=== PATIENT | female | born 1945 | race Caucasian/White ===

== ENCOUNTER → 2016-09-28 | Day surgery (SDC) | payer OTHER ==
[2016-09-23 09:28] VITALS: Ht 162.6 cm; Wt 64.1 kg
[~2016-09-28] VITALS: Ht 162.6 cm; Wt 64.1 kg
[~2016-09-28] MED LIST: 500ML BSS 0.3ML EPI 1:1000PF IRRIG ONE; ACETAMINOPHEN 325 MG TAB PO PRN; ALL180 PO; AMOX/CLAV PO; AMVISC PLUS 0.8ML SYRINGE INT OCU ONE; ASPI81TA28 PO; ATOR10TA88 PO; ATROPINE SULFATE 0.1 MG/ML 5ML SYR IV PRN; AcetaZOLAMIDE 250 MG TAB PO SCH; BETAXOLOL HCL 0.25% OP SUSP PER DROP CHARGE OPR SCH; BRIMONIDINE TART 0.2% OP SOLN PER DROP CHARGE ONE; BSS FLUSH ONE; CPRDOTS OT; DEXT30TA7 PO; ENDOCOAT 0.85ML SYRINGE INT OCU ONE; EpHEDrine SULFATE INJ 50 MG/ML AMP IV PRN; EpINEphrine INJ 1MG/ML AMP 1 MG/ML AMP ONE; FENTANYL CITRATE INJ 50 MCG/1 ML 2 ML VIAL IV PRN; FLUMAZENIL 0.1 MG/1 ML 10 ML VIAL IV PRN; GLC/500 PO; HYD50 PO; HYDROmorphone INJ 2 MG/ML SYR/VIAL IV PRN; LABETALOL HCL IV 5 MG/ML 20ML IV PRN; LACTATED RINGER'S 1000ML 500 ML IV SCH; LIDOCAINE 4% OP SOLN DROP CHARGE ONE; LIDOCAINE 4% OP SOLN DROP CHARGE OPR SCH; LIDOCAINE HCL 1% MPF 2 ML VIAL ONE; MAGN400T6 PO; MEPERIDINE HCL 25 MG/ML CARP IV PRN; MIDAZOLAM HCL 1 MG/ML 2ML VIAL ONE; MIX: 4ML BSS 1ML EPI 1:1000 PF INSTIL ONE; MOME50SP5; MOXIFLOXACIN OPH SOLN PER DROP CHARGE ONE; MULT-845 PO; NALOXONE HCL 0.4 MG/1 ML VIAL/CARP IV PRN; OCUCOAT 1 ML SOLN IO ONE; OMEG10007 PO; ONDANSETRON INJ 2 MG/ML 2 ML VIAL IV PRN; PHENYLEPHRINE 100MCG/ML 5ML SYR IV PRN; POTA1080 PO; POVIDONE-IODINE OP SOLN 30 ML BTL ONE; PRDFOPS/10 OPR; PROPARACAINE 0.5% OP SOLN PER DROP CHARGE OPR SCH; TOBRAMYCIN/DEXAMETHASONE OPH OINT PER APPLN CHARGE ONE; VITAMIN D PO
--- NOTE | 2016-09-28 08:19 | History & Physical Bridge - SC ---
H&P Re-Evaluation Bridge Note: I have examined the patient, reviewed the History & Physical and in the interval since the performance of the History & Physical I have noted the following changes of clinical significance: No changes noted
[2016-09-28] MEDS: PHENYLEPHRINE HCL 2.5% OP SOLN PER DROP CHARGE OPR SCH ×2 (08:30→08:35)
[2016-09-28] MEDS: TROPICAMIDE 1% OP SOLN PER DROP CHARGE OPR SCH ×2 (08:31→08:36)
[2016-09-28] MEDS: CYCLOPENTOLATE HCL 1% OP SOLN PER DROP CHARGE OPR SCH ×2 (08:32→08:37)
[2016-09-28] MEDS: MOXIFLOXACIN OPH SOLN PER DROP CHARGE OPR SCH ×2 (08:33→08:43)
--- NOTE | 2016-09-28 09:44 | Discharge Instructions-SurgCtr ---
Discharge Instructions Visit Reason for Visit: Cataract Right Eye Discharge Discharge Diagnosis / Problem: Lens Imaplnt Right Eye Discharge Goals Goal(s): Improve function Medications Stopped Medications Name(s): Metformin, last dose 09/25/16 Activity Recommendations Activity Limitations: resume your previous activity Lifting Limitations: no more than 10 pounds Exercise/Sports Limitations: gradually increase as tolerated May Resume Sexual Activity: when tolerated Shower/Bathe: tomorrow Driving or Machine Use: resume 1 day after discharge Anesthesia . Post Anesthesia Instructions: If you have had General Anesthesia or IV Sedation: * Do not drive today. * Resume driving when surgeon permits. * Do not make important decisions or sign legal documents today. * Call surgeon for: 1. Temperature elevations greater than 101 degrees F. 2. Uncontrollable pain. 3. Excessive bleeding. 4. Persistent nausea and vomiting. 5. Medication intolerance (nausea, vomiting or rash). * For nausea and vomiting use only clear liquids such as: tea, soda, bouillon until nausea subsides, then gradually increase diet as tolerated. * If you have any concerns or questions, call your surgeon's office. If physician is unavailable and it is an emergency, call 911 or go to the nearest emergency room. . Instructions / Follow-Up Instructions / Follow-Up ACTIVITY RECOMMENDATIONS: * Light activities. * Mild irritation and blurred vision are common for the first few days. * You may walk outside, read, watch television. * Redness around the white part of the eye is common. MEDICATIONS: Resume previous medications unless instructed otherwise by your surgeon. * Take white Diamox (Acetazolamide) tablet at 1 pm today. Start all eye drops at 1 pm today: * Eye drops (today and tomorrow): Prednisone - one drop in operative eye every 3 hours while awake Ofloxacin - one drop in operative eye every 3 hours while awake SPECIAL CARE INSTRUCTIONS: * Tape plastic shield over eye to sleep at night. Call your doctor at with any concerns or problems. FOLLOW UP VISIT: Follow-up with Dr Espinal at [place] office as scheduled. Diet Recommendations Home Diet: no limitations Pending Studies Studies pending at discharge: no Medical Emergencies . Who to Call and When: Medical Emergencies: If at any time you feel your situation is an emergency, please call 911 immediately. . Non-Emergent Contact Non-Emergency issues call your: Psychology Instructor Call Non-Emergent contact if: your pain is not controlled [phone] . . "Provider Documentation" section prepared by Ren Espinal.
--- NOTE | 2016-09-28 09:45 | [facility] Operative Report ---
Operative Report 1. PREOPERATIVE DIAGNOSIS: Senile nuclear cataract, right eye. 2. POSTOPERATIVE DIAGNOSIS: Senile nuclear cataract, right eye. 3. PROCEDURE: Phacoemulsification of right cataract with posterior chamber lens implant, type [employer]ch [employer], model MX60, power +22.0 diopters. ANESTHESIA: Local standby. SURGEON: Dr. Espinal. COMPLICATIONS: None. OPERATING TIME: 10 minutes. 4. OPERATION AND FINDINGS: DESCRIPTION OF PROCEDURE: The right pupil was dilated. The anesthetic was administered using a topical technique. The right eye was prepped and draped. A speculum was placed. A clear corneal incision was formed. The chamber was filled with Amvisc Plus and Endocoat. Epinephrine solution was used. A paracentesis was placed. A capsulorrhexis was performed. The nucleus was hydrodissected. The lens was removed with phacoemulsification. Time was 2.93 seconds. The aspiration unit was used to remove the cortex. The capsule was filled with Amvisc Plus. The lens implant was folded and placed into the capsule. The incision was hydrated. The Amvisc was aspirated. The wound was secure. The chamber was deep. The pupil was round. TobraDex ointment and Vigamox solution were placed. The speculum was removed. The patient was returned to the Recovery Room in stable condition. I attest to the content of the Intraoperative Record and any orders documented therein. Any exceptions are noted below. The scribe's documentation has been prepared in my presence, under my direction and personally reviewed by me in its entirety. I confirm that the note above accurately reflects all work, treatment, procedures, and medical decision making performed by me. I personally scribed for Ren Espinal M.D. ([email or web address]) on 09/28/16 at 09:45. Electronically submitted by Cyndie Smart ([email or web address]).
[2016-09-28 09:50] VITALS: TEMP 36.6
--- NOTE | 2016-09-28 10:00 | Anesthesia Progress Nt - [facility] ---
Anesthesia Post Op Note Date & Time Sep 28, 2016 at 10:00 Vital Signs Pain Intensity: 0 Vital Signs Past 12 Hours Date Time Temp Pulse Resp B/P Pulse Ox O2 Delivery O2 Flow Rate FiO2 09/28/16 08:25 36.7 80 16 144/80 96 Room Air Notes Mental Status: alert / awake / arousable, participated in evaluation Pt Amnestic to Procedure: Yes Nausea / Vomiting: adequately controlled Pain: adequately controlled Airway Patency, RR, SpO2: stable & adequate BP & HR: stable & adequate Hydration State: stable & adequate Anesthetic Complications: no major complications apparent
[2016-09-28 10:16] VITALS: BP 126/76; PULSE 61; O2SAT 98
== END | disposition home or self-care (01) ==
LOC: X.SURG 08:06
PROVIDERS: ATTEND Specialist
DX: H25.11 Age-related nuclear cataract, right eye (principal); Z91.040 Latex allergy status; Z98.49 Cataract extraction status, unspecified eye; E11.36 Type 2 diabetes mellitus with diabetic cataract; Z85.828 Personal history of other malignant neoplasm of skin

== ENCOUNTER → 2016-10-06 | Outpatient (CLI) | payer OTHER ==
[~2016-10-06] MED LIST changes: -500ML BSS 0.3ML EPI 1:1000PF IRRIG ONE; -ACETAMINOPHEN 325 MG TAB PO PRN; -AMVISC PLUS 0.8ML SYRINGE INT OCU ONE; -ATROPINE SULFATE 0.1 MG/ML 5ML SYR IV PRN; -AcetaZOLAMIDE 250 MG TAB PO SCH; -BETAXOLOL HCL 0.25% OP SUSP PER DROP CHARGE OPR SCH; -BRIMONIDINE TART 0.2% OP SOLN PER DROP CHARGE ONE; -BSS FLUSH ONE; -ENDOCOAT 0.85ML SYRINGE INT OCU ONE; -EpHEDrine SULFATE INJ 50 MG/ML AMP IV PRN; -EpINEphrine INJ 1MG/ML AMP 1 MG/ML AMP ONE; -FENTANYL CITRATE INJ 50 MCG/1 ML 2 ML VIAL IV PRN; -FLUMAZENIL 0.1 MG/1 ML 10 ML VIAL IV PRN; -HYDROmorphone INJ 2 MG/ML SYR/VIAL IV PRN; -LABETALOL HCL IV 5 MG/ML 20ML IV PRN; -LACTATED RINGER'S 1000ML 500 ML IV SCH; -LIDOCAINE 4% OP SOLN DROP CHARGE ONE; -LIDOCAINE 4% OP SOLN DROP CHARGE OPR SCH; -LIDOCAINE HCL 1% MPF 2 ML VIAL ONE; -MEPERIDINE HCL 25 MG/ML CARP IV PRN; -MIDAZOLAM HCL 1 MG/ML 2ML VIAL ONE; -MIX: 4ML BSS 1ML EPI 1:1000 PF INSTIL ONE; -MOXIFLOXACIN OPH SOLN PER DROP CHARGE ONE; -NALOXONE HCL 0.4 MG/1 ML VIAL/CARP IV PRN; -OCUCOAT 1 ML SOLN IO ONE; -ONDANSETRON INJ 2 MG/ML 2 ML VIAL IV PRN; -PHENYLEPHRINE 100MCG/ML 5ML SYR IV PRN; -POVIDONE-IODINE OP SOLN 30 ML BTL ONE; -PROPARACAINE 0.5% OP SOLN PER DROP CHARGE OPR SCH; -TOBRAMYCIN/DEXAMETHASONE OPH OINT PER APPLN CHARGE ONE
== END | disposition home or self-care (01) ==
LOC: C.PATHSPEC 15:34
PROVIDERS: ATTEND Podiatrist
DX: B07.0 Plantar wart (principal)

== ENCOUNTER → 2017-02-28 | Outpatient (CLI) | payer OTHER ==
[~2017-02-28] MED LIST changes: +ATOR10TA82 PO; -ATOR10TA88 PO; +BUSP5TAB59 PO; +CHOL400T PO; -CPRDOTS OT; +CPRDOTS OTR; +FEXO1TAB49 PO; +HYDR50TA3 PO; +MOME6000 NAE; +POTA10CA28 PO; +SERT25TA PO
[2017-02-28 12:22] LABS: HEMATOCRIT 42.8 % (37-47); MEAN CELL VOLUME 99.8 fL (80-100); MEAN CORPUSCULAR HEMOGLOBIN 33.1 pg (25-34); MEAN CORPUSCULAR HGB CONC 33.2 g/dl (32-36); MEAN PLATELET VOLUME 10.1 fL (7.4-10.4); PLATELET COUNT 279 K/uL (130-400); RED BLOOD COUNT 4.29 M/uL (4.2-5.4); WHITE BLOOD COUNT 8.47 K/uL (4.8-10.8)
[2017-02-28 12:32] LABS: ALT/SGPT 29 U/L (12-78); BLOOD UREA NITROGEN 15 mg/dl (7-18); BUN/CREATININE RATIO 19.9 (10-20); CARBON DIOXIDE 29 mmol/L (21-32); CHLORIDE 104 mmol/L (98-107); CHOLESTEROL 150 mg/dl (0-200); CREATININE 0.76 mg/dl (0.60-1.20); GLUCOSE 139 mg/dl (70-99); POTASSIUM 4.4 mmol/L (3.5-5.1); SODIUM 144 mmol/L (136-145)
[2017-02-28 12:42] LABS: ALB/GLOB RATIO 1.2 (0.9-2); ALKALINE PHOSPHATASE 105 U/L (45-117); AST/SGOT 18 U/L (15-37); CHOLESTEROL/HDL RATIO 1.8; HDL CHOLESTEROL 85 mg/dl; LDL CHOLESTEROL CALCULATED 52 mg/dl; TRIGLYCERIDES 63 mg/dl (0-150); VERY LOW DENSITY LIPOPROT CALC 13 mg/dl
[2017-02-28 12:47] LABS: CALCIUM 9.6 mg/dl (8.5-10.1)
[2017-02-28 13:08] LABS: RATIO 22.6 mcg/mg (0-30.0)
[2017-02-28 13:08] LABS: ESTIMATED AVERAGE GLUCOSE 140 mg/dl; HA1C FLAG Normal (Normal)
== END | disposition home or self-care (01) ==
LOC: C.LABBFT 07:50
PROVIDERS: ATTEND Internal Medicine
DX: E11.9 Type 2 diabetes mellitus without complications (principal)

== ENCOUNTER → 2017-04-17 | Outpatient (CLI) | payer OTHER ==
[~2017-04-17] MED LIST changes: -ATOR10TA82 PO; +ATOR10TA88 PO; -BUSP5TAB59 PO; -CHOL400T PO; +CPRDOTS OT; -CPRDOTS OTR; -FEXO1TAB49 PO; -HYDR50TA3 PO; -MOME6000 NAE; -POTA10CA28 PO; -SERT25TA PO
--- NOTE | 2017-04-17 15:42 | MAMMOGRAPHY REPORT ---
BILATERAL DIGITAL SCREENING MAMMOGRAM WITH CAD: 04/17/2017 CLINICAL HISTORY: Routine screening examination. TECHNIQUE: Bilateral CC and MLO views were obtained. Current study was also evaluated with a Compute r Aided Detection (CAD) system. COMPARISON: Comparison is made to exams dated: 04/14/2016 mammogram, 03/02/2015 mammogram, 01/31/2014 m ammogram, 01/17/2013 mammogram, 01/11/2012 mammogram, and 01/05/2011 mammogram - [facility]ter. BREAST COMPOSITION: The tissue of both breasts is heterogeneously dense, which may obscure small mas ses. FINDINGS: The parenchymal pattern is similar to prior mammograms. There are stable asymmetries and lymph nodes in the superior aspect of each breast on the MLO views. Numerous bilateral benign rim ca lcifications and mild vascular calcifications in the breasts. No developing mass, architectural dist ortion or cluster of suspicious microcalcifications is seen in either breast. IMPRESSION: ACR BI-RADS CATEGORY 2: BENIGN There is no mammographic evidence of malignancy. A 1 year screening mammogram is recommended. The pa tient will receive written notification of the results. Approximately 10% of breast cancers are not detected with mammography. A negative mammographic report should not delay biopsy if a clinically suggestive mass is present. Cheryl Kitchen M.D. ay/:04/17/2017 14:47:02 Mobile Pet Groomer: Laura PEREZ)(Christina), [facility] letter sent: Normal 1/2 BI-RADS Code: ACR BI-RADS Category 2: Benign
== END | disposition home or self-care (01) ==
LOC: C.MAMM 14:06
PROVIDERS: ATTEND Internal Medicine
DX: Z12.31 Encounter for screening mammogram for malignant neoplasm of breast (principal)

== ENCOUNTER 2017-08-21 13:12 | Emergency (ER) | payer OTHER ==
[~2017-08-21] VITALS: Ht 162.6 cm; Wt 63.2 kg
[~2017-08-21 13:12] MED LIST changes: -ALL180 PO; -AMOX/CLAV PO; +ATOR10TA82 PO; -ATOR10TA88 PO; +BUSP5TAB59 PO; -CPRDOTS OT; +CPRDOTS OTR; +FEXO1TAB49 PO; -HYD50 PO; +HYDR50TA3 PO; -MOME50SP5; +MOME6000 NAE; -POTA1080 PO; +POTA10CA28 PO; -PRDFOPS/10 OPR; +SERT25TA PO
[2017-08-21 13:14] VITALS: TEMP 36.7; Ht 162.6 cm; Wt 63.2 kg
--- NOTE | 2017-08-21 13:49 | EMERGENCY ROOM VISIT NOTE ---
History First contact with patient: 13:27 Chief Complaint: CARDIAC ASSESSMENT Stated Complaint: CHEST PRESSURE Nursing Triage Summary: Pt reports midsternal chest discomfort that began this morning approx 1000. Denies sob, dizziness or lightheadedness. Pain is non radiating. Pt seen here last week for similar sx. Pt reports hx of anxiety, recently started on Zoloft. History of Present Illness The patient is a 71 year old female who presents to the Emergency Room with complaints of substernal chest pain Pt has a PMH of HTN, HLD, T2DM and generalized anxiety disorder and recent hospitalization for chest pain on Aug 18. Patient describes the pain as substernal burning pressure. Pt denies radiation of pain, diaphoresis, SOB, syncope or leg swelling. She endorses the pain at rest and with activity and says that the pain has resolved since arriving to the ED; says that it began at approximately 10:30 am, ending at 12:30pm. The pain began shortly after discussing her recent hospitalization with her [id number] on the phone. She reports feeling stressed by this conversation. During her Aug 18 hospitalization, ACS was ruled out; patient had normal EKG's , cardiac enzymes and exercise echo. Review of Systems see below Constitutional: No fever, No chills, No sweats Respiratory: No cough, No sputum, No shortness of breath, No dyspnea on exertion, No dyspnea at rest Cardiovascular: No chest pain, No orthopnea, No edema, No palpitations Abdomen: No pain, No nausea, No vomiting Past Medical/Surgical History Medical Problems: (1) Anxiety (2) Chest pain (3) Kidney stone Family History Coronary Artery Disease FATHER, GRANDFATHER Kidney disease FATHER, Myocardial Infarction FATHER, Systolic Congestive Heart Failure FATHER, Social History Smoking Status: Never Smoker Drug Use: none Marital Status: Housing Status: lives with significant other Occupation Status: retired Current/Historical Medications Scheduled Aspirin (Aspirin Ec), 81 MG PO QAM Atorvastatin (Lipitor), 10 MG PO HS Cholecalciferol (Vitamin D), 1 TAB PO DAILY Ciprofloxacin/Dexamethasone (Ciprodex 0.3-0.1 %), 4-5 DROPS OTR PRN Dextromethorphan-Guaifenesin (Mucinex Dm), 1 TAB PO BID Fexofenadine Hcl (Sugar Allergy), 180 MG PO HS Fish Oil (Elbert-3), 1 CAP PO QAM Hydrochlorothiazide (Hctz), 50 MG PO BID Magnesium Oxide (Mag-Ox), 400 MG PO BID Metformin Hcl (Glucophage), 500 MG PO BID Multiple Vitamins W/ Minerals (Centrum Silver Adult 50+), 1 TAB PO QAM Potassium Chloride (Micro-K Ext Rel), 10 MEQ PO TID Sertraline (Zoloft), 1 TAB PO DAILY [Vitamin D], 600 INTER.UNIT PO QAM Scheduled PRN Mometasone Furoate (Nasal) (Mometasone Furoate), 2 SPRAYS GREGG DAILY PRN for Nasal Congestion Physical Exam Vital Signs Date Time Temp Pulse Resp B/P (MAP) Pulse Ox O2 Delivery O2 Flow Rate FiO2 08/21/17 15:22 88 18 126/60 97 Room Air 08/21/17 13:14 36.7 106 18 169/73 96 Room Air Physical Exam see below General Appearance: WD/WN, no apparent distress Head: normocephalic, atraumatic Respiratory/Chest: chest non-tender, lungs clear, normal breath sounds, no respiratory distress, no accessory muscle use Cardiovascular: regular rate, rhythm, no edema, no gallop, no JVD, no murmur , normal peripheral pulses Abdomen / GI: normal bowel sounds, non tender, soft, no organomegaly, no pulsatile mass Neurologic/Psych: alert, normal mood/affect, normal reflexes, oriented x 3 Medical Decision & Procedures Laboratory Results Test 08/21/17 13:45 08/21/17 14:00 Troponin I < 0.015 ng/ml (0-0.045) Bedside Troponin I < 0.030 ng/ml (0-0.045) ECG Indication: chest pain Rate (beats per minute): 95 Rhythm: normal sinus Change: no significant change ED Course 1330 History and physical performed. 1345 EKG and troponin ordered 1500 reviewed studies with the patient 1530 discharged the patient Medical Decision 71 yo female with chest pain; Considering the following differential; ACS, anxiety, GERD, esophageal spasm, costochondritis Ordering EKG, POC trop. Unremarkable EKG, no changes seen since previous visit, Trop <.030. The patient does have significant risk factors for CAD; HTN, T2DM and HLD. She also had a Heart Score of 4 putting her at moderate risk of adverse cardiac events. Despite this, the patient had a unremarkable EKG with new changes and a negative POC troponin. In addition, the patient was recently admitted last week for similar chest pain and received an extensive workup for ACS. On that admission, the patient was seen to have a unremarkable EKG's, labs and exercise echo. Patient chest pain appears not to be cardiac in origin. Patient has been instructed to follow up closely with their PCP. Discussed with the patient the potential causes; anxiety, reflux. Impression Primary Impression: Chest pain Additional Impression: Anxiety Departure Information Dispostion Home / Self-Care Referrals Danny Stewart M.D. (PCP) Patient Instructions My [facility] Problem Qualifiers
[2017-08-21] MEDS ORDERED: CHOL400T PO (15:05)
[2017-08-21 15:22] VITALS: BP 126/60; PULSE 88; O2SAT 97
--- NOTE | 2017-08-21 15:29 | EMERGENCY ROOM VISIT NOTE ---
History Report prepared by Meir: Chadwick Ochoa Under the Supervision of: Dr. Venkat Sears D.O. First contact with patient: 13:27 Chief Complaint: CARDIAC ASSESSMENT Stated Complaint: CHEST PRESSURE Nursing Triage Summary: Pt reports midsternal chest discomfort that began this morning approx 1000. Denies sob, dizziness or lightheadedness. Pain is non radiating. Pt seen here last week for similar sx. Pt reports hx of anxiety, recently started on Zoloft. History of Present Illness The patient is a 71 year old female who presents to the Emergency Room with complaints of resolved chest tightness that occurred earlier today. The patient that nothing triggered the chest pain, and she feels like it is a burning sensation. The patient denies any nausea, vomiting, and diaphoresis. The patient has a past medical history of generalized anxiety disorder, and she was recently hospitalized August 17 to August 18 for chest pain. She had a stress echo done, and it was normal. The patient does not have a history of GERD , and she takes Zoloft for her anxiety. Source of History: patient Onset: earlier today Position: chest Quality: burning, other (tightness) Timing: resolved Associated Symptoms: No diaphoresis, No nausea, No vomiting Review of Systems See HPI for pertinent positives & negatives. A total of 10 systems reviewed and were otherwise negative. Past Medical & Surgical Medical Problems: (1) Anxiety (2) Chest pain (3) Kidney stone Family History Coronary Artery Disease FATHER, GRANDFATHER Kidney disease FATHER, Myocardial Infarction FATHER, Systolic Congestive Heart Failure FATHER, Social History Smoking Status: Never Smoker Drug Use: none Marital Status: Housing Status: lives with significant other Occupation Status: retired Current/Historical Medications Scheduled Aspirin (Aspirin Ec), 81 MG PO QAM Atorvastatin (Lipitor), 10 MG PO HS Cholecalciferol (Vitamin D), 1 TAB PO DAILY Ciprofloxacin/Dexamethasone (Ciprodex 0.3-0.1 %), 4-5 DROPS OTR PRN Dextromethorphan-Guaifenesin (Mucinex Dm), 1 TAB PO BID Fexofenadine Hcl (Sugar Allergy), 180 MG PO HS Fish Oil (Eugene-3), 1 CAP PO QAM Hydrochlorothiazide (Hctz), 50 MG PO BID Magnesium Oxide (Mag-Ox), 400 MG PO BID Metformin Hcl (Glucophage), 500 MG PO BID Multiple Vitamins W/ Minerals (Centrum Silver Adult 50+), 1 TAB PO QAM Potassium Chloride (Micro-K Ext Rel), 10 MEQ PO TID Sertraline (Zoloft), 1 TAB PO DAILY [Vitamin D], 600 INTER.UNIT PO QAM Scheduled PRN Mometasone Furoate (Nasal) (Mometasone Furoate), 2 SPRAYS GREGG DAILY PRN for Nasal Congestion Allergies Coded Allergies: Cephalexin (Verified Allergy, Severe, RASH, 08/21/17) Iodine (Verified Allergy, Mild, ITCHING (CONTRAST MEDIA), 08/21/17) Adhesives (Verified Allergy, Unknown, REDNESS, 08/21/17) Iodinated Diagnostic Agents (Verified Allergy, Unknown, ., 08/21/17) Latex1 -Allergic Contact Dermititis (Verified Allergy, Unknown, HIVES, 08/21/17) Physical Exam Vital Signs Date Time Temp Pulse Resp B/P (MAP) Pulse Ox O2 Delivery O2 Flow Rate FiO2 08/21/17 15:22 88 18 126/60 97 Room Air 08/21/17 13:14 36.7 106 18 169/73 96 Room Air Physical Exam CONSTITUTIONAL/VITAL SIGNS: Reviewed / noted above. GENERAL: Non-toxic in appearance. INTEGUMENTARY: Warm, dry, and [place]. HEAD: Normocephalic. EYES: without scleral icterus or trauma. ENT/OROPHARYNX: clear and moist. LYMPHADENOPATHY/NECK: Is supple without lymphadenopathy or meningismus. RESPIRATORY: Lungs clear and equal. CARDIOVASCULAR: Regular rate and rhythm. GI/ABDOMEN: Soft and nontender. No organomegaly or pulsatile mass. No rebound or guarding. Normal bowel sounds. EXTREMITIES: Warm and well perfused. BACK: No CVA tenderness. NEUROLOGICAL: Intact without focal deficits. PSYCHIATRIC: normal affect. MUSCULOSKELETAL: Normally developed with good muscle tone. Medical Decision & Procedures Laboratory Results Test 08/21/17 13:45 08/21/17 14:00 Troponin I < 0.015 ng/ml (0-0.045) Bedside Troponin I < 0.030 ng/ml (0-0.045) Laboratory results as stated above per my review. ECG Indication: chest pain Rate (beats per minute): 95 Rhythm: normal sinus Findings: no ectopy, other (No acute injury) ED Course 1327: The patient was evaluated by the resident at this time. 1521: Previous medical records were reviewed. The patient was evaluated in room A4. A complete history and physical examination was performed. The patient is ready for discharge. Medical Decision the differential was considered includes acute myocardial infarction, acute coronary syndrome, myocarditis, pericarditis, pericardial effusions /tamponade, esophageal perforation, thoracic aortic dissection, pulmonary embolism, pneumonia, pneumothorax, pancreatitis, shingles, acute cholecystitis, perforated abdominal viscus. This patient was seen in conjunction with the resident. She is a 71-year-old female who presented with chest discomfort. The patient was discharged 3 days ago for the same symptoms. She had a cardiac evaluation at that time that was unremarkable. She does have a history of anxiety as well. The patient was placed on Zoloft. She reports that her symptoms are vertical in nature. She describes a burning sensation in her chest. Her EKG shows a normal sinus rhythm at a rate of 95 without ischemic changes. Her troponin here was normal. Her physical exam was unremarkable. Her vital signs are stable. The patient was told results the test. We did recommend acid blocking agents. The patient was felt to be stable for discharge and outpatient follow-up with her PCP. Medication Reconcilliation Current Medication List: was personally reviewed by me Blood Pressure Screening Patient's blood pressure: Elevated blood pressure Blood pressure disposition: Elevated BP felt to be situational Impression Primary Impression: Precordial chest pain Scribe Attestation The scribe's documentation has been prepared under my direction and personally reviewed by me in its entirety. I confirm that the note above accurately reflects all work, treatment, procedures, and medical decision making performed by me. Departure Information Dispostion Home / Self-Care Referrals Danny Stewart M.D. (PCP) Forms IMPORTANT VISIT INFORMATION Patient Instructions My [facility] Additional Instructions Ms. Salas, You came to the emergency room with chest pain. We did some test including an EKG and troponin to rule out cardiac causes of your pain. Both test can tell us if there is any acute damage to the heart. Both of these test came back normal. We also reviewed your recent hospitalization. Today's finding in combination with your recent normal cardiac workup is reassuring. Additionally, there are other non-serious causes of chest pain to consider; gastric reflux andmuscle strain to name a few. Please follow up with your primary care physicain regarding these symptoms. It was a pleasure to take care of you today.
== END 2017-08-21 15:24 | disposition home or self-care (01) ==
LOC: C.EDB 13:13 → C.EDA 15:24
DX: R07.2 Precordial pain (principal); F41.1 Generalized anxiety disorder; I10 Essential (primary) hypertension; E78.5 Hyperlipidemia, unspecified; E11.9 Type 2 diabetes mellitus without complications; Z79.82 Long term (current) use of aspirin; Z79.84 Long term (current) use of oral hypoglycemic drugs; Z79.899 Other long term (current) drug therapy; Z82.49 Family history of ischemic heart disease and other diseases of the circulatory system; Z84.1 Family history of disorders of kidney and ureter

== ENCOUNTER → 2017-08-23 | Outpatient (CLI) | payer OTHER ==
[~2017-08-23] MED LIST changes: -BUSP5TAB59 PO; +CHOL400T PO
[2017-08-23 12:36] LABS: HEMATOCRIT 42.9 % (37-47); MEAN CELL VOLUME 99.3 fL (80-100); MEAN CORPUSCULAR HEMOGLOBIN 32.9 pg (25-34); MEAN CORPUSCULAR HGB CONC 33.1 g/dl (32-36); MEAN PLATELET VOLUME 10.3 fL (7.4-10.4); PLATELET COUNT 287 K/uL (130-400); RED BLOOD COUNT 4.32 M/uL (4.2-5.4); WHITE BLOOD COUNT 9.55 K/uL (4.8-10.8)
[2017-08-23 12:51] LABS: ALT/SGPT 29 U/L (12-78); AST/SGOT 16 U/L (15-37); BLOOD UREA NITROGEN 16 mg/dl (7-18); BUN/CREATININE RATIO 20.2 (10-20); CALCIUM 9.8 mg/dl (8.5-10.1); CARBON DIOXIDE 31 mmol/L (21-32); CHLORIDE 101 mmol/L (98-107); GLUCOSE 137 mg/dl (70-99); POTASSIUM 3.8 mmol/L (3.5-5.1); SODIUM 138 mmol/L (136-145)
[2017-08-23 12:54] LABS: ALB/GLOB RATIO 1.1 (0.9-2); ALKALINE PHOSPHATASE 110 U/L (45-117); CHOLESTEROL 157 mg/dl (0-200); CHOLESTEROL/HDL RATIO 1.7; HDL CHOLESTEROL 90 mg/dl; LDL CHOLESTEROL CALCULATED 49 mg/dl; TRIGLYCERIDES 90 mg/dl (0-150); VERY LOW DENSITY LIPOPROT CALC 18 mg/dl
[2017-08-23 13:16] LABS: ESTIMATED AVERAGE GLUCOSE 140 mg/dl; HA1C FLAG Normal (Normal)
== END | disposition home or self-care (01) ==
LOC: C.LABBFT 07:44
PROVIDERS: ATTEND Internal Medicine
DX: E78.5 Hyperlipidemia, unspecified (principal); E11.9 Type 2 diabetes mellitus without complications

== ENCOUNTER → 2017-09-21 | Outpatient (CLI) | payer OTHER | END | disposition home or self-care (01) | LOC: C.PATHSPEC 16:58 | PROVIDERS: ATTEND Physician Assistant | DX: C44.722 Squamous cell carcinoma of skin of right lower limb, including hip (principal); D04.72 Carcinoma in situ of skin of left lower limb, including hip ==

== ENCOUNTER → 2017-09-27 | Outpatient (CLI) | payer OTHER ==
--- NOTE | 2017-09-27 14:40 | DIAGNOSTIC IMAGING REPORT ---
KUB CLINICAL HISTORY: N20.0 Kidney [id number] nephrocalcinosis COMPARISON STUDY: 10/28/2015 FINDINGS: Multiple bilateral renal calcifications. Is essentially unchanged in size as well as number. There are no significant paravertebral calcifications. There are multiple pelvic vascular calcifications which are unchanged. Bowel pattern is nonobstructive. IMPRESSION: Bilateral nephrocalcinosis. No change from the prior study. Nonobstructive bowel pattern. The above report was generated using voice recognition software. It may contain grammatical, syntax or spelling errors. Electronically signed by: Carmine Adams M.D. 09/27/2017 2:39 PM Dictated Date/Time: 09/27/2017 2:38 PM
== END | disposition home or self-care (01) ==
LOC: C.RAD 14:22
PROVIDERS: ATTEND Urology
DX: N20.0 Calculus of kidney (principal)

== ENCOUNTER → 2017-11-09 | Outpatient (CLI) | payer OTHER | END | disposition home or self-care (01) | LOC: C.PATHSPEC 18:24 | PROVIDERS: ATTEND Plastic Surgery | DX: D04.71 Carcinoma in situ of skin of right lower limb, including hip (principal); D04.72 Carcinoma in situ of skin of left lower limb, including hip ==

== ENCOUNTER → 2018-04-27 | Outpatient (CLI) | payer OTHER ==
--- NOTE | 2018-04-27 15:27 | MAMMOGRAPHY REPORT ---
BILATERAL DIGITAL SCREENING MAMMOGRAM TOMOSYNTHESIS WITH CAD: 04/27/2018 CLINICAL HISTORY: Routine screening. Patient has no complaints. TECHNIQUE: The study was acquired using full field digital technology and interpreted from soft copy. Breast tomosynthesis in addition to standard 2D mammography was performed. Current study was also ev aluated with a Computer Aided Detection (CAD) system. COMPARISON: Comparison is made to exams dated: 04/17/2017 mammogram, 04/14/2016 mammogram, 03/02/2015 m ammogram, 01/31/2014 mammogram, 01/17/2013 mammogram, and 01/11/2012 mammogram - [facility] nter. BREAST COMPOSITION: The tissue of both breasts is heterogeneously dense, which may obscure small mass es. FINDINGS: No suspicious masses, calcifications, or areas of architectural distortion are noted in either breast . There has been no significant interval change compared to prior exams. Bilateral asymmetries and s cattered bilateral benign-appearing calcifications are not significantly changed. IMPRESSION: ACR BI-RADS CATEGORY 2: BENIGN There is no mammographic evidence of malignancy. A 1 year screening mammogram is recommended.( 019) The patient will receive written notification of the results. Some breast cancers are not detected with mammography. A negative mammographic report should not fang y biopsy if a clinically suggestive mass is present. Kelsi Elam M.D. ah/:04/27/2018 14:51:00 Plastics Plater: Sarika Viveros RT(R)(M), [facility] letter sent: Normal 1/2 BI-RADS Code: ACR BI-RADS Category 2: Benign
== END | disposition home or self-care (01) ==
LOC: C.MAMM 14:11
PROVIDERS: ATTEND Internal Medicine
DX: Z12.31 Encounter for screening mammogram for malignant neoplasm of breast (principal)

== ENCOUNTER 2021-05-03 12:38 | Observation (INO) ==
--- NOTE | 2021-05-03 13:26 | XRay Report ---
SINGLE VIEW CHEST CLINICAL HISTORY: Atypical chest pain. FINDINGS: An AP, portable, upright chest radiograph is compared to study dated 08/14/2019. The cardio mediastinal silhouette is unremarkable. There is bibasilar atelectasis. The lungs and pleural spaces are otherwise clear. No pneumothorax is seen. The skeletal structures are osteopenic. The bony thorax is grossly intact. IMPRESSION: No active disease in the chest. ACT 112: Negative or not required by law. Electronically signed by: Familia Leigh M.D. 05/03/2021 1:25 PM
[2021-05-03] MEDS ORDERED: ASPIRIN CHEW 324 MG PO STA (13:37)
[2021-05-03 13:38] LABS: Alanine Aminotransferase 25 U/L (12-78); Albumin Level 3.8 gm/dl (3.4-5.0); Aspartate Aminotransferase 20 U/L (15-37); BUN Creatinine Ratio 21.9 (10-20); Blood Urea Nitrogen 14 mg/dl (7-18); Calcium 9.5 mg/dl (8.5-10.1); Carbon Dioxide 26 mmol/L (21-32); Chloride 108 mmol/L (98-107); Creatinine Clr Calc Pharmacy 71.1 ml/min; Est GFR (African American) 100.5 ml/min; Est GFR (Non-African American) 86.7 ml/min; Glucose 106 mg/dl (70-99); Potassium 4.1 mmol/L (3.5-5.1); Sodium 137 mmol/L (136-145)
[2021-05-03 13:43] LABS: Alkaline Phosphatase 133 U/L (45-117); Bilirubin,Total 0.5 mg/dl (0.2-1); Globulin 3.7 gm/dl (2.5-4.0); Total Protein 7.5 gm/dl (6.4-8.2); Troponin I < 0.015 ng/ml (0-0.045)
[2021-05-03 14:04] LABS: Basophils # (auto) 0.02 K/uL (0-0.2); Basophils % (auto) 0.2 %; Eosinophils # (auto) 0.28 K/uL (0-0.5); Eosinophils % (auto) 3.2 %; Hematocrit (blood only) 42.1 % (37-47); Immature Granulocytes # (auto) 0.02 K/uL (0.00-0.02); Immature Granulocytes % (auto) 0.2 %; Lymphocytes # (auto) 2.75 K/uL (1.2-3.4); Lymphocytes % (auto) 31.3 %; Mean Corpuscular Hemoglobin 33.1 pg (25-34); Mean Corpuscular Hgb Conc 33.3 g/dL (32-36); Mean Corpuscular Volume 99.5 fL (80-100); Monocytes # (auto) 0.62 K/uL (0.11-0.59); Neutrophils # (auto) 5.11 K/uL (1.4-6.5); Neutrophils % (auto) 58.1 %; Platelet Count 283 K/uL (130-400); RDW Standard Deviation 47.5 fL (36.4-46.3); Red Blood Count 4.23 M/uL (4.2-5.4)
[2021-05-03 14:29] LABS: Partial Thromboplastin Time 25.2 Seconds (21.0-31.0); Prothrombin Time 9.8 Seconds (9.0-12.0)
--- NOTE | 2021-05-03 16:36 | Electrocardiogram Report ---
Test Reason : Blood Pressure : / mmHG Vent. Rate : 085 BPM Atrial Rate : 085 BPM P-R Int : 166 ms QRS Dur : 076 ms QT Int : 356 ms P-R-T Axes : 072 052 048 degrees QTc Int : 423 ms Normal sinus rhythm Normal ECG When compared with ECG of 14-AUG-2019 13:24, No significant change was found Confirmed by Ren Bhatti ([id number]) on 05/03/2021 4:36:32 PM Referred By: Danny Stewart Confirmed By:Ren Bhatti
--- NOTE | 2021-05-03 17:19 | History & Physical Report ---
Date of Service May 03, 2021 Assessment & Plan (1) Chest pain: Plan: Patient has no previous cardiac diagnosis, suspect this may be anxiety Place in monitored observation Trend troponins Check fasting lipid panel We will plan for a stress echocardiogram in the morning (2) Hypercholesteremia: Plan: Check fasting lipids as noted above Continue atorvastatin 10 mg daily (3) Hypertension: Plan: Continue lisinopril 10 mg daily Blood pressure is currently elevated to 163/81, will monitor, consider increasing lisinopril or adding additional agent if this remains elevated (4) Controlled type 2 diabetes mellitus with microalbuminuria: Plan: Diabetic diet Check hemoglobin A1c We will hold Metformin while here Sliding scale insulin (5) Anxiety: Plan: Continue sertraline I will order low-dose Ativan as needed History of Present Illness Chief Complaint: Chest pain Primary Care Provider: Danny Stewart MD This is a 75-year-old female with past medical history of hypertension, hypercholesterolemia, and anxiety disorder presents today complaining of chest pain. Patient is pleasant good historian. Patient tells me that over the past several days she has been experiencing a dull heaviness in the center of her chest with some radiations up to her left neck. Is not associated with shortness of breath, palpitations, diaphoresis, or other symptoms. They are not associate with activity but she does state that rest will improve it. There is some association with racing thoughts and she suspects this may be secondary to anxiety. She has been having stress at home with her son who has had ongoing illness. Patient has never had any cardiac work-up per her history. Allergies Allergy/AdvReac Type Severity Reaction Status Date / Time Iodinated Contrast Media Allergy Intermediate Blister Verified 05/03/21 15:03 adhesive Allergy Mild REDNESS Verified 05/03/21 15:03 cephalexin Allergy Mild RASH Verified 05/03/21 15:03 latex Allergy Mild Rash Verified 05/03/21 15:03 Home Medications Medication Instructions Recorded Confirmed Type aspirin 81 mg tablet,delayed 81 mg PO HS 04/29/19 05/03/21 History release fexofenadine 180 mg tablet 180 mg PO HS 04/29/19 05/03/21 History guaifenesin 600 mg tablet, 600 mg PO Q12H 04/29/19 05/03/21 History extended release 12 hr (Mucinex) levomefolate Ca 3 mg-B6 35 1 cap PO BID 04/29/19 05/03/21 History mg-meB12 2 mg-algal oil 90.314 mg capsule (Metanx (algal oil)) magnesium oxide 400 mg PO QPM tab 04/29/19 05/03/21 History mometasone 50 mcg/actuation nasal 2 sprays INTNAS DAILY PRN 04/29/19 05/03/21 History spray (Nasonex) omega-3 fatty acids 1,000 mg 1,000 mg PO QAM 08/13/19 05/03/21 History capsule (Fish Oil Concentrate) econazole 1 % topical cream 1 applic TOPICAL BID 11/20/19 05/03/21 History cyanocobalamin (vitamin B-12) 1,000 mcg PO DAILY 03/25/20 05/03/21 History 1,000 mcg tablet (Vitamin B-12) multivit with 1 tab PO DAILY 03/25/20 05/03/21 History [id number]-lutein 8 mg iron-400 mcg-300 mcg tablet (Centrum Silver Women) metformin 500 mg tablet 500 mg PO BID #180 tab 06/08/20 05/03/21 Rx atorvastatin 10 mg tablet 10 mg PO PM #90 tab 09/07/20 05/03/21 Rx lisinopril 10 mg tablet 10 mg PO DAILY #90 tab 12/04/20 05/03/21 Rx sertraline 50 mg tablet 50 mg PO DAILY #90 tab 12/07/20 05/03/21 Rx Past Med/Surg History Medical History (Updated 05/03/21 @ 17:13 by Omar Hebret, ) Anxiety Diabetes mellitus, type 2 Diabetic nephropathy Hard of hearing right ear Hearing deficit Hyperlipidemia Hypertension Kidney stone (2014) Skin cancer BACK/ARMS/LEGS WITH REMOVAL - [facility] Temporomandibular joint disorder Surgical History History of ankle surgery History of Treatment Of Ankle Fracture LEFT History of cataract surgery History of Intracapsular Cataract Extract W/ Insert Intraocular Lens Prosthesis History of section X2 History of colonoscopy History of dilation and curettage History of ear surgery right eardrum History of lithotripsy x10 History of tonsillectomy Status post myringotomy with insertion of tube Family History Unknown Heart disease Breast cancer Grandmother Diabetes Grandmother Epilepsy Recurrent seizures Father FHx: allergies Kidney disease Myocardial infarction Mother FHx: allergies Other No family history of adverse response to anesthesia Denies family history of Ovarian cancer Prostate cancer Colorectal cancer Social History Smoking Status: Never smoker Second Hand Exposure: Yes (father smoked); Hx Alcohol Use: Yes Alcohol type: beer Alcohol Intake Frequency Comment: occasionally Hx Substance Use: No Preferred Language: Setswana Communication Ability: Effective Visual Impairment: No Limitations Hearing Ability: Hard of Hearing Rn Oncology Research Required: No Beliefs That Will Affect Care: None marital status: Current Living Situation: Spouse and Family Current Living Situation Comment: Lives with and son current occupational status: retired current occupation: retired high school computer science teacher Feels Safe at Home: Yes Childhood Exposure to Second-Hand Smoke: Yes caffeine: Yes Dental Care, Regularly: Yes Physical Activity Frequency: Daily Seatbelt Use: always Sunscreen Use: Yes Do you think of yourself as: straight/heterosexual Assistive Devices: Glasses Review of Systems Constitutional: no fever, no chills, no weakness, no weight loss and no weight gain Eyes: as per Subjective / HPI Respiratory: no cough, no chest congestion, no dyspnea and no dyspnea on exertion Cardiovascular: + chest pain and + radiating jaw, neck or arm pain; no dyspnea at rest, no dyspnea on exertion, no orthopnea, no palpitations, no lightheadedness, no syncope, no edema and no claudication Gastrointestinal: no abdominal pain, no nausea, no vomiting, no constipation and no diarrhea/loose stools Genitourinary: no dysuria, no difficulty urinating, no urinary frequency, no urinary hesitancy, no urinary urgency and no flank pain Musculoskeletal: no back pain, no neck pain, no joint pain, no stiffness and no myalgia Integumentary: no rash Neurologic: no gait abnormality, no unsteadiness, no falls and no generalized weakness Psychiatric: + anxiety Physical Exam Constitutional: cooperative; no acute distress Neck: trachea midline, no thyromegaly Respiratory: normal respiratory effort Auscultation: lungs clear to auscultation bilaterally; no crackles, no rales, no rhonchi and no wheezes Cardiovascular: Rate/Rhythm: regular rate and regular rhythm Heart Sounds: normal S1 and normal S2 Gastrointestinal (Abdomen): Inspection/Auscultation: abdomen normal to inspection Percussion/Palpation: abdomen soft; abdomen nontender, no guarding, abdomen not rigid and no hepatosplenomegaly Skin: no rashes, warm and dry Results & Data Results & Data ([facility]) Vital Signs (Past 12 Hours) Vital Signs Temp Pulse Pulse Resp BP BP Pulse Ox 05/03/21 15:10 83 83 21 163/81 H 163/81 H 95 05/03/21 13:56 80 19 144/84 H 95 05/03/21 13:55 80 16 144/84 H 94 05/03/21 13:08 80 16 97 05/03/21 12:59 80 21 154/85 H 94 05/03/21 12:43 36.5 C 88 18 160/80 H 95 Laboratory Results Laboratory Results WBC 8.80 K/uL (4.8-10.8) 05/03/21 13:00 RBC 4.23 M/uL (4.2-5.4) 05/03/21 13:00 Hgb 14.0 g/dL (12.0-16.0) 05/03/21 13:00 Hct 42.1 % (37-47) 05/03/21 13:00 MCV 99.5 fL (80-100) 05/03/21 13:00 MCH 33.1 pg (25-34) 05/03/21 13:00 MCHC 33.3 g/dL (32-36) 05/03/21 13:00 RDW Std Deviation 47.5 fL (36.4-46.3) H 05/03/21 13:00 RDW Coeff of Sasha 13.0 % (11.5-14.5) 05/03/21 13:00 Plt Count 283 K/uL (130-400) 05/03/21 13:00 MPV 10.0 fL (7.4-10.4) 05/03/21 13:00 Immature Gran % (Auto) 0.2 % 05/03/21 13:00 Neut % (Auto) 58.1 % 05/03/21 13:00 Lymph % (Auto) 31.3 % 05/03/21 13:00 Camp % (Auto) 7.0 % 05/03/21 13:00 Eos % (Auto) 3.2 % 05/03/21 13:00 Baso % (Auto) 0.2 % 05/03/21 13:00 Neut # (Auto) 5.11 K/uL (1.4-6.5) 05/03/21 13:00 Lymph # (Auto) 2.75 K/uL (1.2-3.4) 05/03/21 13:00 Camp # (Auto) 0.62 K/uL (0.11-0.59) H 05/03/21 13:00 Eos # (Auto) 0.28 K/uL (0-0.5) 05/03/21 13:00 Baso # (Auto) 0.02 K/uL (0-0.2) 05/03/21 13:00 Immature Gran # (Auto) 0.02 K/uL (0.00-0.02) 05/03/21 13:00 PT 9.8 Seconds (9.0-12.0) 05/03/21 13:48 INR 1.0 (0.9-1.1) 05/03/21 13:48 APTT 25.2 Seconds (21.0-31.0) 05/03/21 13:48 PTT Ratio 1.0 05/03/21 13:48 Sodium 137 mmol/L (136-145) 05/03/21 13:00 Potassium 4.1 mmol/L (3.5-5.1) 05/03/21 13:00 Chloride 108 mmol/L (98-107) H 05/03/21 13:00 Carbon Dioxide 26 mmol/L (21-32) 05/03/21 13:00 Anion Gap 3.0 (3-11) 05/03/21 13:00 BUN 14 mg/dl (7-18) 05/03/21 13:00 Creatinine 0.64 mg/dl (0.6-1.2) 05/03/21 13:00 Est Cr Clr Drug Dosing 71.1 ml/min 05/03/21 13:00 Est GFR ( Amer) 100.5 ml/min 05/03/21 13:00 Est GFR (Non-Af Amer) 86.7 ml/min 05/03/21 13:00 BUN/Creatinine Ratio 21.9 (10-20) H 05/03/21 13:00 Glucose 106 mg/dl (70-99) H 05/03/21 13:00 Calcium 9.5 mg/dl (8.5-10.1) 05/03/21 13:00 Total Bilirubin 0.5 mg/dl (0.2-1) 05/03/21 13:00 AST 20 U/L (15-37) 05/03/21 13:00 ALT 25 U/L (12-78) 05/03/21 13:00 Alkaline Phosphatase 133 U/L (45-117) H 05/03/21 13:00 Troponin I < 0.015 ng/ml (0-0.045) 05/03/21 14:58 Total Protein 7.5 gm/dl (6.4-8.2) 05/03/21 13:00 Albumin 3.8 gm/dl (3.4-5.0) 05/03/21 13:00 Globulin 3.7 gm/dl (2.5-4.0) 05/03/21 13:00 Albumin/Globulin Ratio 1.0 (0.9-2) 05/03/21 13:00 COVID-19 Eval Order Covid19 at [facility] 05/03/21 13:59 SARS-CoV-2 (PCR) NEGATIVE (Negative) 05/03/21 13:59 Impressions Chest X-Ray 05/03/21 13:06 SINGLE VIEW CHEST CLINICAL HISTORY: Atypical chest pain. FINDINGS: An AP, portable, upright chest radiograph is compared to study dated 08/14/2019. The cardiomediastinal silhouette is unremarkable. There is bibasilar atelectasis. The lungs and pleural spaces are otherwise clear. No pneumothorax is seen. The skeletal structures are osteopenic. The bony thorax is grossly intact. IMPRESSION: No active disease in the chest. ACT 112: Negative or not required by law. Electronically signed by: Familia Leigh M.D. 05/03/2021 1:25 PM PG Care Time/CCT Total # of Minutes Spent Total Time Spent with Patient: Total time spent is greater than 50% in coordination of care (as documented) at patient's floor/unit and/or counseling patient: Coding Level of Care Code INT OBSERVATION CARE 70M LVL 3 Diagnoses Hypercholesteremia E78.00 Hypertension I10 Chest pain R07.9 Controlled type 2 diabetes mellitus with microalbuminuria E11.29; R80.9 Anxiety F41.9
[2021-05-03] MEDS ORDERED: ONDANSETRON INJ 2 MG/ML 2 ML VIAL IV PRN (20:33)
[2021-05-03] MEDS ORDERED: DEXTROSE 50% 50 ML SYRINGE IV PRN (20:33)
[2021-05-03] MEDS ORDERED: ACETAMINOPHEN 325 MG TAB PO PRN (20:33)
[2021-05-03] MEDS ORDERED: LORazepam 0.5 MG TAB PO PRN (20:33)
[2021-05-03] MEDS ORDERED: GLUCOSE 40% GEL 15 GM TUBE PO PRN (20:33)
[2021-05-03] MEDS ORDERED: GLUCOSE 10 TABS/TUBE PO PRN (20:33)
[2021-05-03] MEDS ORDERED: MAGNESIUM HYDROXIDE SUSP 30 ML UDC PO PRN (20:33)
[2021-05-03] MEDS ORDERED: GLUCAGON FOR INJ 1 MG VIAL SQ PRN (20:33)
[2021-05-03] MEDS ORDERED: ALUMINUM/MAGNESIUM SUSP 30 ML UDC PO PRN (20:33)
[2021-05-03] MEDS ORDERED: CARBOHYDRATES FOR HYPOGLYCEMIA PO PRN (20:33)
[2021-05-03] MEDS ORDERED: ACETAMINOPHEN 325 MG TAB ONE (20:44)
[2021-05-03] MEDS ORDERED: FEXOFENADINE HCL 180 MG TAB PO SCH (21:00)
[2021-05-03] MEDS ORDERED: NON-FORMULARY MEDICATION (Levomefol-B6-Meb12-Algal Oil [Metanx (Algal Oil)] 3 mg-35 mg-2 m PO SCH (21:00)
[2021-05-03] MEDS ORDERED: ATORVASTATIN 10 MG TAB PO SCH (21:00)
[2021-05-03] MEDS ORDERED: FLUTICASONE PROPIONATE NA SPR 16 GM BTL PRN (21:29)
[2021-05-03] MEDS: guaiFENesin 600 MG TABCR PO SCH (22:06)
[2021-05-03] MEDS: INSULIN ASPART 100 UNITS/ML 3 ML PEN SC SCH (22:10)
[2021-05-04 02:58] LABS: Basophils # (auto) 0.02 K/uL (0-0.2); Basophils % (auto) 0.2 %; Eosinophils % (auto) 3.1 %; Hematocrit (blood only) 38.4 % (37-47); Hemoglobin 12.9 g/dL (12.0-16.0); Immature Granulocytes # (auto) 0.01 K/uL (0.00-0.02); Immature Granulocytes % (auto) 0.1 %; Lymphocytes # (auto) 3.88 K/uL (1.2-3.4); Lymphocytes % (auto) 40.1 %; Mean Corpuscular Hemoglobin 32.8 pg (25-34); Mean Corpuscular Hgb Conc 33.6 g/dL (32-36); Mean Corpuscular Volume 97.7 fL (80-100); Mean Platelet Volume 9.5 fL (7.4-10.4); Monocytes # (auto) 0.71 K/uL (0.11-0.59); Monocytes % (auto) 7.3 %; Neutrophils # (auto) 4.75 K/uL (1.4-6.5); Neutrophils % (auto) 49.2 %; Platelet Count 249 K/uL (130-400); RDW Coefficient of Variation 12.8 % (11.5-14.5); RDW Standard Deviation 45.6 fL (36.4-46.3); Red Blood Count 3.93 M/uL (4.2-5.4); White Blood Count 9.67 K/uL (4.8-10.8)
[2021-05-04 03:14] LABS: BUN Creatinine Ratio 23.7 (10-20); Calcium 8.9 mg/dl (8.5-10.1); Creatinine Clr Calc Pharmacy 68.7 ml/min; Est GFR (African American) 99.5 ml/min; Est GFR (Non-African American) 85.8 ml/min; Potassium 4.1 mmol/L (3.5-5.1)
[2021-05-04 07:09] LABS: Estimated Average Glucose 131 mg/dl; Hemoglobin A1C 6.2 % (4.5-5.6)
[2021-05-04] MEDS: INSULIN ASPART 100 UNITS/ML 3 ML PEN SC SCH ×2 (07:16→11:51)
[2021-05-04] MEDS ORDERED: DOBUTamine HCL 12.5 MG/ML 20 ML VIAL IV ONE (08:26)
[2021-05-04] MEDS ORDERED: METOPROLOL TARTRATE 1 MG/ML VIAL IV ONE (08:26)
[2021-05-04] MEDS ORDERED: ATROPINE SULFATE 0.1 MG/ML 10ML SYR IV ONE (08:26)
[2021-05-04] MEDS ORDERED: OMEGA-3 (PURIFIED FISH OIL) 1 GM CAP PO SCH (09:00)
[2021-05-04] MEDS ORDERED: lisinopril 10 MG TAB PO SCH (09:00)
[2021-05-04] MEDS ORDERED: MULTIVITAMIN TAB PO SCH (09:00)
[2021-05-04] MEDS ORDERED: CYANOCOBALAMIN 500 MCG TABLET (VITAMIN B-12) PO SCH (09:00)
[2021-05-04] MEDS ORDERED: SERTRALINE HCL 50 MG TABLET PO SCH (09:00)
[2021-05-04] MEDS ORDERED: PERFLUTREN LIPID MICROSPHERE (DEFINITY) IV ONE (09:06)
[2021-05-04] MEDS: guaiFENesin 600 MG TABCR PO SCH (09:34)
--- NOTE | 2021-05-04 16:57 | Electrocardiogram Report ---
Test Reason : Blood Pressure : / mmHG Vent. Rate : 072 BPM Atrial Rate : 072 BPM P-R Int : 194 ms QRS Dur : 078 ms QT Int : 394 ms P-R-T Axes : 063 055 062 degrees QTc Int : 431 ms Normal sinus rhythm Normal ECG When compared with ECG of 03-MAY-2021 12:52, No significant change was found Confirmed by Ren Bhatti ([id number]) on 05/04/2021 4:57:17 PM Referred By: Danny Stewart Confirmed By:Ren Bhatti
--- NOTE | 2021-05-04 20:54 | Discharge Summary ---
Date of Service May 04, 2021 Admission HPI Per Admitting Provider This is a 75-year-old female with past medical history of hypertension, hypercholesterolemia, and anxiety disorder presents today complaining of chest pain. Patient is pleasant good historian. Patient tells me that over the past several days she has been experiencing a dull heaviness in the center of her chest with some radiations up to her left neck. Is not associated with shortness of breath, palpitations, diaphoresis, or other symptoms. They are not associate with activity but she does state that rest will improve it. There is some association with racing thoughts and she suspects this may be secondary to anxiety. She has been having stress at home with her son who has had ongoing illness. Patient has never had any cardiac work-up per her history. Principal Diagnosis Chest Pain Discharge Exam Constitutional WD/WN, vitals as above Eyes + anicteric sclerae Neck trachea midline Respiratory normal respiratory effort, lungs clear to auscultation Cardiovascular RRR, no murmur, no edema Gastrointestinal (Abdomen) normal bowel sounds, soft, nontender, no hepatosplenomegaly Skin no rashes, warm and dry Neurologic moves all extremities Psychiatric A+Ox3, euthymic affect Discharge Data Allergies Allergy/AdvReac Type Severity Reaction Status Date / Time Iodinated Contrast Media Allergy Intermediate Blister Verified 05/03/21 15:03 adhesive Allergy Mild REDNESS Verified 05/03/21 15:03 cephalexin Allergy Mild RASH Verified 05/03/21 15:03 latex Allergy Mild Rash Verified 05/03/21 15:03 Consultations 05/03/21 16:21 ED Decision to Admit Stat Hospital Course (1) Chest pain: - Likely stressed-induced vs uncertain etiology; does report similar feelings when her anxiety flairs - Troponins negative and completed a dobutamine stress test which was negative for ischemic findings - Continue home regimen of ASA 81 mg daily, Atorvastatin 10 mg daily (2) Hypercholesteremia: - Continue atorvastatin 10 mg daily (3) Hypertension: - Continue lisinopril 10 mg daily - BP improved and possibly related to anxiety (4) Controlled type 2 diabetes mellitus with microalbuminuria: - Continue home regimen (5) Anxiety: - Continue Sertraline Total Time Total Time Spent Total Time Spent (In Minutes): Greater than 30 minutes Discharge Plan Discharge Items Patient Disposition: Home - Self-Care Reason For Visit: CHEST PAIN Discharge Diagnosis: Chest Pain Activity: Resume your previous activity Non-emergency contact: Primary Care Provider Call non-emergency contact if: you have any medication questions, your symptoms worsen, your pain is worsening, your pain is unusual for you and your pain is concerning for you Follow-up/Referrals: Danny Stewart III, MD [Primary Care Provider] - 05/07/21 11:30 am Diet: Carb Consistent or DM2 and Heart Healthy Addtl Attending Provider Instructions: Chest Pain: - While in the hospital your heart was monitored. You had a normal heart rhythm in the hospital. A blood test called troponin was tested and normal on three checks. Troponin is released into the blood when there is damage to the heart and thankfully we do not see this - You also had a stress test. This test "stresses" your heart to make sure it is functioning correctly and if there is any signs of issues. We did not see this on your stress test - Chest pain can be caused by multiple things such as GI (foods/acid reflux), muscular tension, and stress. - But good cardiac health is important and you can help this by continuing your baby aspirin, controlling cholesterol, controlling blood pressure, and keeping blood sugars under control. - You can continue your normal medications as we did not make any changes Pending Studies at Discharge: No Stand-Alone Forms: My [facility], Smoking Cessation Medications and DC Order Prescriptions: Continued metformin 500 mg tablet 500 mg PO BID Qty: 180 RF: 3 atorvastatin 10 mg tablet 10 mg PO PM Qty: 90 RF: 3 lisinopril 10 mg tablet 10 mg PO DAILY Qty: 90 RF: 3 omega-3 fatty acids [Fish Oil Concentrate] 1,000 mg capsule 1,000 mg PO QAM RF: 0 sertraline 50 mg tablet 50 mg PO DAILY Qty: 90 RF: 3 aspirin 81 mg tablet,delayed release (DR/EC) 81 mg PO HS RF: 0 fexofenadine 180 mg tablet 180 mg PO HS RF: 0 magnesium oxide 400 mg magnesium tablet 400 mg PO QPM RF: 0 [id number]-algal oil [Metanx (algal oil)] 3 mg-35 mg-2 mg -90.314 mg capsule 1 cap PO BID RF: 0 guaifenesin [Mucinex] 600 mg tablet extended release 12hr 600 mg PO Q12H RF: 0 mometasone [Nasonex] 50 mcg/actuation spray,non-aerosol 2 sprays INTNAS DAILY PRN (Reason: Nasal Congestion) RF: 0 econazole 1 % Cream 1 applic TOPICAL BID RF: 0 cyanocobalamin (vitamin B-12) [Vitamin B-12] 1,000 mcg Tablet 1,000 mcg PO DAILY RF: 0 Centrum Silver Women 8 mg iron-400 mcg-300 mcg Tablet 1 tab PO DAILY RF: 0 Discharge Orders: Discharge Order (Routine); Ordered 05/04/21 Ordered By: Mellisa Kumar/Other Patient Handouts: A1C, Managing Type 2 Diabetes, Special Foot Care for Diabetes Admission Data Admit Date/Time: 05/03/21 17:45 Attending Provider: Rafael Multani Admit Provider: Omar Hebert Primary Care Provider: Danny Stewart III Other Providers: Omar Hebert Other Interventions: Discharge Summary Assessment (RN) Last Done: 05/04/21 13:01 Supervising Physician Co-Signing Physician Notes Attending note: patient seen and examined with Mellisa León PA-C. I agree with her discharge summary. I personally reviewed the labs and imaging findings. patient feeling well, no further chest pain, she feels her symptoms were due to anxiety dobutamine stress echo negative - Chest pain: no evidence of ACS, neg troponin, dobutamine stress echo without ischemic changes likely due to anxiety, better now discussed healthy stress relief Coding Level of Care Code 63022 OBS Care - Discharge Diagnoses Chest pain R07.9 Hypercholesteremia E78.00 Hypertension I10 Controlled type 2 diabetes mellitus with microalbuminuria E11.29; R80.9 Anxiety F41.9
[2021-05-04] MEDS ORDERED: ASPIRIN 81 MG ECTAB PO SCH (21:00)
[2021-05-04] MEDS ORDERED: MAGNESIUM OXIDE 400 MG TAB PO SCH (21:00)
--- NOTE | 2021-05-05 08:51 | Emergency Department Note ---
History of Present Illness General Chief complaint: Chest Pain Stated complaint: CHEST PAIN History of Present Illness Maximum Pain Intensity: 7 Home Medications Medication Instructions Recorded Confirmed Type aspirin 81 mg tablet,delayed 81 mg PO HS 04/29/19 05/03/21 History release fexofenadine 180 mg tablet 180 mg PO HS 04/29/19 05/03/21 History guaifenesin 600 mg tablet, 600 mg PO Q12H 04/29/19 05/03/21 History extended release 12 hr (Mucinex) levomefolate Ca 3 mg-B6 35 1 cap PO BID 04/29/19 05/03/21 History mg-meB12 2 mg-algal oil 90.314 mg capsule (Metanx (algal oil)) magnesium oxide 400 mg PO QPM tab 04/29/19 05/03/21 History mometasone 50 mcg/actuation nasal 2 sprays INTNAS DAILY PRN 04/29/19 05/03/21 History spray (Nasonex) omega-3 fatty acids 1,000 mg 1,000 mg PO QAM 08/13/19 05/03/21 History capsule (Fish Oil Concentrate) econazole 1 % topical cream 1 applic TOPICAL BID 11/20/19 05/03/21 History cyanocobalamin (vitamin B-12) 1,000 mcg PO DAILY 03/25/20 05/03/21 History 1,000 mcg tablet (Vitamin B-12) multivit with 1 tab PO DAILY 03/25/20 05/03/21 History phmzpowh-dfjo-AY-lutein 8 mg iron-400 mcg-300 mcg tablet (Centrum Silver Women) metformin 500 mg tablet 500 mg PO BID #180 tab 06/08/20 05/03/21 Rx atorvastatin 10 mg tablet 10 mg PO PM #90 tab 09/07/20 05/03/21 Rx lisinopril 10 mg tablet 10 mg PO DAILY #90 tab 12/04/20 05/03/21 Rx sertraline 50 mg tablet 50 mg PO DAILY #90 tab 12/07/20 05/03/21 Rx Allergies Allergy/AdvReac Type Severity Reaction Status Date / Time Iodinated Contrast Media Allergy Intermediate Blister Verified 05/03/21 15:03 adhesive Allergy Mild REDNESS Verified 05/03/21 15:03 cephalexin Allergy Mild RASH Verified 05/03/21 15:03 latex Allergy Mild Rash Verified 05/03/21 15:03 Past Med/Surg History Medical History (Updated 05/05/21 @ 00:08 by Vidal Del Valle) Anxiety Diabetes mellitus, type 2 Diabetic nephropathy Hard of hearing right ear Hearing deficit Hyperlipidemia Hypertension Kidney stone (2015) Skin cancer BACK/ARMS/LEGS WITH REMOVAL - [facility] Temporomandibular joint disorder Surgical History History of ankle surgery History of Treatment Of Ankle Fracture LEFT History of cataract surgery History of Intracapsular Cataract Extract W/ Insert Intraocular Lens Prosthesis History of section X2 History of colonoscopy History of dilation and curettage History of ear surgery right eardrum History of lithotripsy x10 History of tonsillectomy Status post myringotomy with insertion of tube Family History Unknown Heart disease Breast cancer Grandmother Diabetes Grandmother Epilepsy Recurrent seizures Father FHx: allergies Kidney disease Myocardial infarction Mother FHx: allergies Other No family history of adverse response to anesthesia Denies family history of Ovarian cancer Prostate cancer Colorectal cancer Social History Smoking Status: Never smoker Second Hand Exposure: Yes (father smoked); Hx Alcohol Use: Yes Alcohol type: beer Alcohol Intake Frequency Comment: occasionally Hx Substance Use: No Preferred Language: Grenadian Communication Ability: Effective Visual Impairment: No Limitations Hearing Ability: Hard of Hearing 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 Beliefs That Will Affect Care: None marital status: Current Living Situation: Spouse Current Living Situation Comment: Lives with and son current occupational status: retired current occupation: retired primary school teacher librarian Feels Safe at Home: Yes Childhood Exposure to Second-Hand Smoke: Yes caffeine: Yes Dental Care, Regularly: Yes Physical Activity Frequency: Daily Seatbelt Use: always Sunscreen Use: Yes Do you think of yourself as: straight/heterosexual Assistive Devices: Glasses Course Administered Medications Discontinued Medications Acetaminophen (Acetaminophen 325 Mg Tab) Confirm Administered Dose 650 mg .ROUTE .STK-MED ONE Stop: 05/03/21 20:45 Last Admin: 05/03/21 20:47 Dose: 650 mg Documented by: [id number] Aspirin (Aspirin Chew 324 Mg) 324 mg PO NOW STA Stop: 05/03/21 13:38 Last Admin: 05/03/21 14:03 Dose: 324 mg Documented by: [id number] Atorvastatin Calcium (Atorvastatin 10 Mg Tab) 10 mg PO PM ALCIDES Stop: 06/02/21 20:59 Last Admin: 05/03/21 22:05 Dose: 10 mg Documented by: [id number] Atropine Sulfate (Atropine Sulfate 0.1 Mg/Ml 10ml Syr) Confirm Administered Dose 2 mg IV .STK-MED ONE Stop: 05/04/21 08:27 Last Admin: 05/04/21 09:06 Dose: Not Given Documented by: [id number] Cyanocobalamin (Cyanocobalamin 500 Mcg Tablet (Vitamin B-12)) 1,000 mcg PO DAILY ALCIDES Stop: 06/03/21 08:59 Last Admin: 05/04/21 09:34 Dose: 1,000 mcg Documented by: [id number] Dobutamine HCl (Dobutamine Hcl 12.5 Mg/Ml 20 Ml Vial) Confirm Administered Dose 250 mg IV .STK-MED ONE Stop: 05/04/21 08:27 Last Admin: 05/04/21 09:05 Dose: 1 dose Documented by: [id number] Fexofenadine HCl (Fexofenadine Hcl 180 Mg Tab) 180 mg PO HS ALCIDES Stop: 06/02/21 20:59 Last Admin: 05/03/21 22:06 Dose: 180 mg Documented by: [id number] Fish Oil ([place]-3 (Purified Fish Oil) 1 Gm Cap) 1 gm PO QAM ALCIDES Stop: 06/03/21 08:59 Last Admin: 05/04/21 09:34 Dose: 1 gm Documented by: [id number] Guaifenesin (Guaifenesin 600 Mg Tabcr) 600 mg PO Q12H ALCIDES Stop: 06/02/21 20:59 Last Admin: 05/04/21 09:34 Dose: 600 mg Documented by: [id number] Admin: 05/03/21 22:06 Dose: 600 mg Documented by: [id number] Insulin Aspart (Insulin Aspart 100 Units/Ml 3 Ml Pen) 0 units SC ACHS ALCIDES Stop: 06/02/21 20:59 Last Admin: 05/04/21 11:51 Dose: 2 units Documented by: [id number] Cosigned by: [id number] Admin: 05/04/21 07:16 Dose: Not Given Documented by: [id number] Admin: 05/03/21 22:10 Dose: 1 units Documented by: [id number] Cosigned by: [id number] Lisinopril (Lisinopril 10 Mg Tab) 10 mg PO DAILY ALCIDES Stop: 06/03/21 08:59 Last Admin: 05/04/21 09:34 Dose: 10 mg Documented by: [id number] Metoprolol Tartrate (Metoprolol Tartrate 1 Mg/Ml Vial) Confirm Administered Dose 10 mg IV .STK-MED ONE Stop: 05/04/21 08:27 Last Admin: 05/04/21 09:04 Dose: 5 mg Documented by: [id number] Multivitamins (Multivitamin Tab) 1 tab PO QAM ALCIDES Stop: 06/03/21 08:59 Last Admin: 05/04/21 09:33 Dose: 1 tab Documented by: [id number] Non-Formulary Medication ([id number]-Algal Oil [Metanx (Algal Oil)]) 1 cap PO BID ALCIDES Stop: 06/02/21 20:59 Last Admin: 05/04/21 07:13 Dose: Not Given Documented by: [id number] Perflutren Lipid Microsphere (Perflutren Lipid Microsphere (Definity)) 2 ml IV ONCE ONE Stop: 05/04/21 09:07 Last Admin: 05/04/21 09:07 Dose: 2 ml Documented by: [id number] Sertraline HCl (Sertraline Hcl 50 Mg Tablet) 50 mg PO DAILY ALCIDES Stop: 06/03/21 08:59 Last Admin: 05/04/21 09:33 Dose: 50 mg Documented by: [id number] Medical Decision Making Laboratory Data Result diagrams: 05/04/21 02:34 05/04/21 02:34 Lab Results 05/03/21 05/03/21 05/03/21 Range/Units 13:00 13:00 13:00 WBC 8.80 (4.8-10.8) K/uL RBC 4.23 (4.2-5.4) M/uL Hgb 14.0 (12.0-16.0) g/dL Hct 42.1 (37-47) % MCV 99.5 (80-100) fL MCH 33.1 (25-34) pg MCHC 33.3 (32-36) g/dL RDW Std Deviation 47.5 H (36.4-46.3) fL RDW Coeff of Sasha 13.0 (11.5-14.5) % Plt Count 283 (130-400) K/uL MPV 10.0 (7.4-10.4) fL Immature Gran % (Auto) 0.2 % Neut % (Auto) 58.1 % Lymph % (Auto) 31.3 % [place] % (Auto) 7.0 % Eos % (Auto) 3.2 % Baso % (Auto) 0.2 % Neut # (Auto) 5.11 (1.4-6.5) K/uL Lymph # (Auto) 2.75 (1.2-3.4) K/uL [place] # (Auto) 0.62 H (0.11-0.59) K/uL Eos # (Auto) 0.28 (0-0.5) K/uL Baso # (Auto) 0.02 (0-0.2) K/uL Immature Gran # (Auto) 0.02 (0.00-0.02) K/uL PT Cancelled INR Cancelled APTT Cancelled PTT Ratio Cancelled Sodium 137 (136-145) mmol/L Potassium 4.1 (3.5-5.1) mmol/L Chloride 108 H (98-107) mmol/L Carbon Dioxide 26 (21-32) mmol/L Anion Gap 3.0 (3-11) BUN 14 (7-18) mg/dl Creatinine 0.64 (0.6-1.2) mg/dl Est Cr Clr Drug Dosing 71.1 ml/min Est GFR ( Amer) 100.5 ml/min Est GFR (Non-Af Amer) 86.7 ml/min BUN/Creatinine Ratio 21.9 H (10-20) Glucose 106 H (70-99) mg/dl Calcium 9.5 (8.5-10.1) mg/dl Total Bilirubin 0.5 (0.2-1) mg/dl AST 20 (15-37) U/L ALT 25 (12-78) U/L Alkaline Phosphatase 133 H (45-117) U/L Troponin I < 0.015 (0-0.045) ng/ml Total Protein 7.5 (6.4-8.2) gm/dl Albumin 3.8 (3.4-5.0) gm/dl Globulin 3.7 (2.5-4.0) gm/dl Albumin/Globulin Ratio 1.0 (0.9-2) COVID-19 Eval Order SARS-CoV-2 (PCR) (Negative) 05/03/21 05/03/21 05/03/21 Range/Units 13:48 13:59 13:59 WBC (4.8-10.8) K/uL RBC (4.2-5.4) M/uL Hgb (12.0-16.0) g/dL Hct (37-47) % MCV (80-100) fL MCH (25-34) pg MCHC (32-36) g/dL RDW Std Deviation (36.4-46.3) fL RDW Coeff of Sasha (11.5-14.5) % Plt Count (130-400) K/uL MPV (7.4-10.4) fL Immature Gran % (Auto) % Neut % (Auto) % Lymph % (Auto) % [place] % (Auto) % Eos % (Auto) % Baso % (Auto) % Neut # (Auto) (1.4-6.5) K/uL Lymph # (Auto) (1.2-3.4) K/uL [place] # (Auto) (0.11-0.59) K/uL Eos # (Auto) (0-0.5) K/uL Baso # (Auto) (0-0.2) K/uL Immature Gran # (Auto) (0.00-0.02) K/uL PT 9.8 INR 1.0 APTT 25.2 PTT Ratio 1.0 Sodium (136-145) mmol/L Potassium (3.5-5.1) mmol/L Chloride (98-107) mmol/L Carbon Dioxide (21-32) mmol/L Anion Gap (3-11) BUN (7-18) mg/dl Creatinine (0.6-1.2) mg/dl Est Cr Clr Drug Dosing ml/min Est GFR ( Amer) ml/min Est GFR (Non-Af Amer) ml/min BUN/Creatinine Ratio (10-20) Glucose (70-99) mg/dl Calcium (8.5-10.1) mg/dl Total Bilirubin (0.2-1) mg/dl AST (15-37) U/L ALT (12-78) U/L Alkaline Phosphatase (45-117) U/L Troponin I (0-0.045) ng/ml Total Protein (6.4-8.2) gm/dl Albumin (3.4-5.0) gm/dl Globulin (2.5-4.0) gm/dl Albumin/Globulin Ratio (0.9-2) COVID-19 Eval Order Covid19 at [facility] SARS-CoV-2 (PCR) NEGATIVE (Negative) 05/03/21 Range/Units 14:58 WBC (4.8-10.8) K/uL RBC (4.2-5.4) M/uL Hgb (12.0-16.0) g/dL Hct (37-47) % MCV (80-100) fL MCH (25-34) pg MCHC (32-36) g/dL RDW Std Deviation (36.4-46.3) fL RDW Coeff of Sasha (11.5-14.5) % Plt Count (130-400) K/uL MPV (7.4-10.4) fL Immature Gran % (Auto) % Neut % (Auto) % Lymph % (Auto) % [place] % (Auto) % Eos % (Auto) % Baso % (Auto) % Neut # (Auto) (1.4-6.5) K/uL Lymph # (Auto) (1.2-3.4) K/uL [place] # (Auto) (0.11-0.59) K/uL Eos # (Auto) (0-0.5) K/uL Baso # (Auto) (0-0.2) K/uL Immature Gran # (Auto) (0.00-0.02) K/uL PT INR APTT PTT Ratio Sodium (136-145) mmol/L Potassium (3.5-5.1) mmol/L Chloride (98-107) mmol/L Carbon Dioxide (21-32) mmol/L Anion Gap (3-11) BUN (7-18) mg/dl Creatinine (0.6-1.2) mg/dl Est Cr Clr Drug Dosing ml/min Est GFR ( Amer) ml/min Est GFR (Non-Af Amer) ml/min BUN/Creatinine Ratio (10-20) Glucose (70-99) mg/dl Calcium (8.5-10.1) mg/dl Total Bilirubin (0.2-1) mg/dl AST (15-37) U/L ALT (12-78) U/L Alkaline Phosphatase (45-117) U/L Troponin I < 0.015 (0-0.045) ng/ml Total Protein (6.4-8.2) gm/dl Albumin (3.4-5.0) gm/dl Globulin (2.5-4.0) gm/dl Albumin/Globulin Ratio (0.9-2) COVID-19 Eval Order SARS-CoV-2 (PCR) (Negative) Discharge Plan Visit Data Chief Complaint: Chest Pain Stated Complaint: CHEST PAIN ED Provider: Susannah Pineda Patient Disposition: Admitted As Inpatient Discharge Instructions Interventions: ED Discharge Assessment Last Done: 05/03/21 19:39
--- NOTE | 2021-05-05 11:32 | XCELERA ---
[id number]
== END 2021-05-04 14:48 | disposition home or self-care (01) ==
LOC: 2S 12:38 → ED 12:38 → SUATTDRO 17:45 → 2S 19:39
DX: Z91.040 Latex allergy status; Z79.84 Long term (current) use of oral hypoglycemic drugs; Z91.041 Radiographic dye allergy status; Z91.048 Other nonmedicinal substance allergy status; Z20.822 Contact with and (suspected) exposure to COVID-19; Z79.899 Other long term (current) drug therapy; Z85.828 Personal history of other malignant neoplasm of skin; E11.21 Type 2 diabetes mellitus with diabetic nephropathy; Z79.82 Long term (current) use of aspirin; Z88.1 Allergy status to other antibiotic agents; E78.5 Hyperlipidemia, unspecified; I10 Essential (primary) hypertension; Z87.442 Personal history of urinary calculi; R07.9 Chest pain, unspecified